=== PATIENT | male | born 1935 | race African-American/Black ===

== ENCOUNTER 2024-09-02 14:30 | Emergency (ER) | payer OTHER ==
[~2024-09-02] VITALS: Ht 177.8 cm; Wt 82.0 kg
[2024-09-02 14:34] VITALS: O2SAT 98
[2024-09-02] MEDS: ACETAMINOPHEN 500MG TABLET PO ONE (15:28)
[2024-09-02] MEDS: SODIUM CHLORIDE 0.9% 1,000 ML IV ONE (17:50)
[2024-09-02] MEDS: METOCLOPRAMIDE HCL 10MG/2ML VIAL IV ONE (18:12)
[2024-09-02] MEDS: KETOROLAC 15MG/ML VIAL IV NR (19:20)
[2024-09-02 19:42] VITALS: TEMP 36.39180
[2024-09-02 20:03] VITALS: BP 148/85; PULSE 88; RESP 20; O2SAT 97
== END 2024-09-02 21:00 | disposition home or self-care (01) ==
LOC: ER 14:30
DX: R51.9 Headache, unspecified (principal); I11.0 Hypertensive heart disease with heart failure; I50.9 Heart failure, unspecified; Z85.9 Personal history of malignant neoplasm, unspecified
CPT/HCPCS: 99285; 96374; 70450; 96375; J1885; J2765; J7030

== ENCOUNTER 2025-03-05 10:32 | Emergency (ER) | payer OTHER ==
[~2025-03-05] VITALS: Ht 182.9 cm; Wt 82.0 kg
[2025-03-05 10:35] VITALS: O2SAT 96
[2025-03-05 11:27] LABS: HEMATOCRIT. 45.5 % (42.0-52.0); MEAN CORPUSCULAR HEMOGLOBIN 29.4 pg (28.0-32.0); MEAN CORPUSCULAR HGB CONC 32.9 g/dL (31.0-37.0); MEAN CORPUSCULAR VOLUME 89.5 fL (80.0-94.0); MEAN PLATELET VOLUME 9.8 fl (7.4-10.4); PLATELET 216 x1000/uL (130-400); RED BLOOD CELL COUNT 5.08 mill/uL (4.7-6.1); RED CELL DISTRIBUTION WIDTH 18.4 % (11.6-14.6); WHITE BLOOD COUNT 5.7 x1000/uL (4.5-11.0)
[2025-03-05 11:29] LABS: DIFFERENTIAL COMMENT 1
[2025-03-05 11:38] LABS: INR 1.3; PROTHROMBIN TIME 13.9 sec (9.6-11.0)
[2025-03-05 11:51] LABS: CARBON DIOXIDE 22 mEq/L (21-32); CHLORIDE 104 mEq/L (98-107); POTASSIUM 3.8 mEq/L (3.5-5.1); SODIUM 137 mEq/L (136-145)
[2025-03-05 11:52] LABS: CALCIUM 9.4 mg/dL (8.7-10.4)
[2025-03-05 11:57] LABS: CREATININE 1.2 mg/dL (0.6-1.3); GLUCOSE 112 mg/dL (70-105); UREA NITROGEN BLOOD 11 mg/dL (9-23)
[2025-03-05 12:13] LABS: ANISOCYTOSIS 1+; PLATELET ESTIMATE NORMAL
[2025-03-05] MEDS ORDERED: AZITHROMYCIN 500MG/250ML 250 ML IV STA (12:19)
[2025-03-05] MEDS: CEFTRIAXONE 1GM/50ML 50 ML IV ONE (12:24)
[2025-03-05 12:43] LABS: TROPONIN I HIGH SENSITIVITY 65 ng/L (3.0-53)
[2025-03-05] MEDS: AZITHROMYCIN 500MG in D5W 250ML IV NR (15:04)
[2025-03-05 15:53] VITALS: BP 96/57; PULSE 88; RESP 18; TEMP 37.1; O2SAT 99
== END 2025-03-05 16:15 | disposition admitted as inpatient to this hospital (09) ==
LOC: ER 10:46
DX: J18.9 Pneumonia, unspecified organism (principal); I11.0 Hypertensive heart disease with heart failure; I50.9 Heart failure, unspecified; C78.00 Secondary malignant neoplasm of unspecified lung; Z79.899 Other long term (current) drug therapy
CPT/HCPCS: 99285; 96365; 70450; 71045; 96375; 80048; 85025; 85610; 84484; 36415; J0456; J0696